=== PATIENT | female | born 1975 | race Caucasian/White ===

== ENCOUNTER 2016-10-02 17:00 | Emergency (ER) | payer BC ==
[2016-10-02 17:07] VITALS: RESP 16; TEMP 98
--- NOTE | 2016-10-02 17:22 | ED PDOC ---
Syncope/Near Syncope/Dizzyness Time Seen by Provider: 10/02/16 17:13 Chief Complaint (Nursing): Weakness/Neurological Deficit Chief Complaint (Provider): Near Syncope History Per: Patient History/Exam Limitations: no limitations Onset/Duration Of Symptoms: Hrs (just prior to arrival) Current Symptoms Are (Timing): Still Present Activity At Onset Of Symptoms: Other (driving) Fall Associated With With Symptoms: No Additional Complaint(s): Denisse Garcia is a 40 year old female, with a past medical history inclusive of HTN (Losartan compliant), occsional palpitations, prediabetes, sarcoidosis (in remission for a couple of months) and vertigo (no meds), who presents to the ED on 10/02/16, via EMS, for the evaluation of an episode of near-syncope that she had experienced just prior to arrival as she had been driving her car. Some associated generalized weakness and dyspnea also reported at time of episode, with patient further describing it as if her breathing was "heavy/off/slower" than usual. Only headache/dizziness have persisted upon arrival in the ED. Patient also states that approximately 7 hours ago she had begun to experience a moderate, frontal headache (not worst of life) as well as some, lightheadedness, dizziness and a cough. She also notes that she had some difficulty with comprehending things she had been reading online, but otherwise denies fever, nasal congestion, myalgias, numbness/tingling, focal extremity weakness, chest pain, abdominal pain, vomiting, diarrhea, leg pain or dysuria. Of note, patient reports having started a weight loss regimen of HCG drops a few weeks ago under the supervision of her doctor, which she had stopped taking sometime last week. She reports a cumulative weight loss of approximately 18lbs over the course of 3 weeks, further stating that she had also started an "egg diet" yesterday; eating 8 eggs, 2-3oz of cheese an mayonnaise between yesterday and today. Patient notes that she has used both of these weight loss regimens before without issue. PMD: Adriana Hays ([place], [place]) Past Medical History Reviewed: Historical Data, Nursing Documentation, Vital Signs Vital Signs: Last Vital Signs Temp 98.0 F 10/02/16 17:04 Pulse 70 10/02/16 17:04 Resp 16 10/02/16 17:04 BP 170/107 H 10/02/16 17:04 Pulse Ox 98 10/02/16 17:04 - Medical History PMH: Diabetes (prediabetes), HTN Denies: Hypercholesterolemia Other PMH: sarcoidosis (in remission), vertigo, fibroids/endometriosis - Surgical History Surgical History: No Surg Hx - Family History Family History: States: Unknown Family Hx - Allergies Allergies/Adverse Reactions: Allergies Allergy/AdvReac Type Severity Reaction Status Date / Time Penicillins Allergy RASH Verified 10/02/16 17:04 Review of Systems ROS Statement: Except As Marked, All Systems Reviewed And Found Negative Constitutional: Positive for: Weakness (generalized). Negative for: Other (no myalgias) ENT: Negative for: Nose Congestion Cardiovascular: Positive for: Light Headedness (w/episode of near syncope). Negative for: Chest Pain Respiratory: Positive for: Cough, Shortness of Breath (felt "heavy/off/slower" than usual) Gastrointestinal: Positive for: Nausea. Negative for: Vomiting, Abdominal Pain , Diarrhea Genitourinary Female: Negative for: Dysuria Musculoskeletal: Negative for: Leg Pain Neurological: Positive for: Headache (frontal, not worst of life), Dizziness. Negative for: Weakness (no focal weakness), Numbness Physical Exam - Reviewed Nursing Documentation Reviewed: Yes Vital Signs Reviewed: Yes - Physical Exam Appears: Positive for: Non-toxic, No Acute Distress Head Exam: Positive for: ATRAUMATIC, NORMOCEPHALIC Skin: Positive for: Normal Color, Warm, Dry Eye Exam: Positive for: Normal appearance, PERRL ENT: Positive for: Normal ENT Inspection Cardiovascular/Chest: Positive for: Regular Rate, Rhythm. Negative for: Murmur Respiratory: Positive for: Normal Breath Sounds. Negative for: Respiratory Distress (speaking in full sentences) Gastrointestinal/Abdominal: Positive for: Normal Exam, Soft. Negative for: Tenderness Back: Positive for: Normal Inspection. Negative for: L CVA Tenderness, R CVA Tenderness Extremity: Positive for: Normal ROM (FROM x4 extremities actively). Negative for: Calf Tenderness, Swelling Neurologic/Psych: Positive for: Alert, forensic economist II-XII (intact), Oriented, Motor/ Sensory Deficits (5/5 x4 extremities). Negative for: Aphasia, Facial Droop - Laboratory Results Result Diagrams: 10/02/16 18:05 10/02/16 18:05 Interpretation Of Abn Labs: 9.9 hg - ECG ECG: Positive for: Interpreted By Me, Viewed By Me ECG Rhythm: Positive for: Normal QRS, Normal ST Segment, Sinus Rhythm O2 Sat by Pulse Oximetry: 98 (RA) Pulse Ox Interpretation: Normal - CT Scan/US ct Other Rad Studies (CT/US): Read By Radiologist Other Rad Interpretation: no acute - Progress ED Course And Treament: 190: Pending chest x-ray. Dr. Griffin to take over care. BERTO. Medical Decision Making Medical Decision Makin:13 Initial Impression: near syncope, headache Initial Plan: * EKG * CT Head w/o contrast * CXR * Labs * Troponin I * Upreg * Udip * IV NS 1000ml at 1000mls/hr * Reglan 10mg IV * Meclizine 25mg PO * Reevaluation Scribe Attestation: Documented by Sue Campbell, acting as a scribe for Alton Bateman MD. Provider Scribe Attestation: All medical record entries made by the Scribe were at my direction and personally dictated by me. I have reviewed the chart and agree that the record accurately reflects my personal performance of the history, physical exam, medical decision making, and the department course for this patient. I have also personally directed, reviewed, and agree with the discharge instructions and disposition. Disposition - Clinical Impression Clinical Impression: Dizziness, Upper respiratory tract infection - Patient ED Disposition Is Patient to be Admitted: Transfer of Care - Disposition Disposition: Transfer of Care Disposition Time: 19:09 Condition: STABLE Patient Signed Over To: Wagner Griffin
[2016-10-02] MEDS ORDERED: Sodium Chloride 0.9% 1,000 ML IV STA (17:25)
[2016-10-02 18:33] LABS: BASO # 0.1 K/uL (0.0-0.2); BASO % 1.6 % (0.0-2.0); EOS # 0.1 K/uL (0.0-0.7); EOS % 2.6 % (0.0-4.0); HEMATOCRIT 30.8 % (34.0-47.0); LYMPH # 1.4 K/uL (1.0-4.3); LYMPH % 32.6 % (20.0-40.0); MEAN CELL VOLUME 80.8 fl (81.0-99.0); MEAN CORPUSCULAR HEMOGLOBIN 25.9 pg (27.0-31.0); MEAN CORPUSCULAR HGB CONC 32.1 g/dL (33.0-37.0); MEAN PLATELET VOLUME 8.5 fl (7.2-11.7); MONO # 0.6 K/uL (0.0-0.8); MONO % 14.2 % (0.0-10.0); NEUT # 2.1 K/uL (1.8-7.0); NRBC % 0.1 % (0.0-0.0); RED CELL DISTRIBUTION WIDTH 18.9 % (11.5-14.5); WHITE BLOOD COUNT 4.2 K/uL (4.8-10.8)
[2016-10-02 18:39] LABS: ALB/GLOB RATIO 1.2 (1.0-2.1); ALKALINE PHOSPHATASE 57 U/L (38-126); ALT/SGPT 22 U/L (9-52); AST/SGOT 28 U/L (14-36); BILIRUBIN,TOTAL 0.4 mg/dl (0.2-1.3); BLOOD UREA NITROGEN 15 mg/dl (7-17); CALCIUM 10.2 mg/dL (8.4-10.2); CARBON DIOXIDE 21 mmol/L (22-30); CHLORIDE 99 mmol/L (98-107); GFR AFRICAN-AMERICAN > 60; GLUCOSE,RANDOM 93 mg/dL (65-105); POTASSIUM 3.5 MMOL/L (3.6-5.0); SODIUM 141 mmol/l (132-148); TOTAL PROTEIN 8.2 G/DL (6.3-8.2)
--- NOTE | 2016-10-02 18:39 | CT ---
PROCEDURE: CT HEAD WITHOUT CONTRAST. HISTORY: headache COMPARISON: None available. TECHNIQUE: Axial computed tomography images were obtained through the head/brain without intravenous contrast. Radiation dose: Total exam DLP = 866.21 mGy-cm. This CT exam was performed using one or more of the following dose reduction techniques: Automated exposure control, adjustment of the mA and/or kV according to patient size, and/or use of iterative reconstruction technique. FINDINGS: HEMORRHAGE: No intracranial hemorrhage. BRAIN: No mass effect or edema. No atrophy or chronic microvascular ischemic changes. VENTRICLES: Unremarkable. No hydrocephalus. CALVARIUM: Unremarkable. PARANASAL SINUSES: Unremarkable as visualized. No significant inflammatory changes. MASTOID AIR CELLS: Unremarkable as visualized. No inflammatory changes. OTHER FINDINGS: None. IMPRESSION: No acute intracranial abnormalities. No significant findings to account for the clinical presentation.
[2016-10-02 19:51] VITALS: BP 163/104; PULSE 77; O2SAT 99
--- NOTE | 2016-10-02 19:59 | ED PDOC ---
- Laboratory Results Result Diagrams: 10/02/16 18:05 10/02/16 18:05 - ECG O2 Sat by Pulse Oximetry: 99 (RA) Pulse Ox Interpretation: Normal Medical Decision Making Medical Decision Makin:00 Patient endorsed over to me by Alton Bateman MD, pending results of ED workup, reevaluation and final disposition. 20:28 Patient has declined CXR in favor of waiting to be evaluated by her PMD. Headache is reportedly gone, with patient feeling much improved. She has been advised of all lab findings, including apparent anemia, and that during past visits her hemoglobin level has gone as low as 7. As patient has been under a lot of physical stress of late secondary to both extreme diet/healthy eating, it is likely that she is also not receiving enough calories. Counseling provided regarding diagnosis, patient also advised to pause diet until she is feeling well. Patient is to follow up with her PMD but has been instructed to return to the ED for any acute worsening of symptoms. Clinical Impression: dizziness, URI, hypertension Scribe Attestation: Documented by Sue Campbell, acting as a scribe for Wagner Griffin MD. Provider Scribe Attestation: All medical record entries made by the Scribe were at my direction and personally dictated by me. I have reviewed the chart and agree that the record accurately reflects my personal performance of the history, physical exam, medical decision making, and the department course for this patient. I have also personally directed, reviewed, and agree with the discharge instructions and disposition. Disposition - Clinical Impression Clinical Impression: Dizziness, URI (upper respiratory infection), Hypertension - POA Present On Arrival: None - Disposition Referrals: [facility] [Outside] Disposition: Routine/Home Disposition Time: 20:28 Condition: STABLE Instructions: Dizziness (ED)
--- NOTE | 2016-10-03 11:37 | CARD ---
APPROVED REPORT EKG Measurement Heart [id number] <Conclusion> Normal sinus rhythm with sinus arrhythmia Normal ECG
== END 2016-10-02 20:48 | disposition home or self-care (01) ==
LOC: H.ER 17:00
DX: R42 Dizziness and giddiness (principal); I10 Essential (primary) hypertension; J06.9 Acute upper respiratory infection, unspecified; E11.9 Type 2 diabetes mellitus without complications; R51 Headache; R73.03 Prediabetes; Z88.0 Allergy status to penicillin
CPT/HCPCS: 70450; 80053; 81025; 84484; 85025; 93005; 96360; 99283; J7040